=== PATIENT | female | born 1950 | race Caucasian/White ===

== ENCOUNTER → 2017-01-20 | Outpatient (CLI) | payer MEDICARE ==
--- NOTE | 2017-01-24 16:56 | RADIOLOGY REPORT PS360 ---
DIG MAMM-SCREEN EMANI W/CAD CAD Screening COMPARISON: Digital mammograms 01/19/2016 and 04/11/2014 INDICATION: There is a history of breast cancer in patient's maternal first cousin. TECHNIQUE: Standard CC and MLO images were obtained. R2 CAD reviewed. FINDINGS: Prominent diffuse heterogenic fibroglandular densities are seen in both breasts. The findings are stable and unchanged from the previous exam. Again noted is a mole marker in her quadrant right breast. There is no suspicious lesion and there are no suspicious microcalcifications. There is a benign-appearing calcification right breast. IMPRESSION: Stable exam with no suspicious lesion seen recommend yearly follow-up BI-RADS CATEGORY: 2_Benign RECOMMENDED FOLLOWUP: 12M 12 MONTH FOLLOW-UP (A letter has been sent to the patient regarding results of the study.)
== END ==
LOC: RAD 10:36
DX: Z12.31 Encounter for screening mammogram for malignant neoplasm of breast (principal)